=== PATIENT | male | born 1960 | race Caucasian/White ===

== ENCOUNTER → 2021-05-27 | Outpatient (CLI) | payer SELFPAY | LOC: COL.VAS 13:01 | DX: I34.0 Nonrheumatic mitral (valve) insufficiency (principal); I51.7 Cardiomegaly ==

== ENCOUNTER 2022-03-04 12:52 | Inpatient (IN) | payer SELFPAY ==
[~2022-03-04] VITALS: Ht 193 cm; Wt 95.5 kg
[2022-03-04 14:14] LABS: BASO # 0.1 K/mm3 (0.0-0.2); BASO % 1.1 % (0.0-2.0); EOS # 0.3 K/mm3 (0.0-0.7); EOS % 2.7 % (0.0-4.0); GRAN # 5.7 K/mm3 (1.4-6.5); GRAN % 60.5 % (42.2-75.2); HEMATOCRIT 45.4 % (42.0-52.0); HEMOGLOBIN 15.8 g/dl (13.5-18.0); LYMPH # 2.5 K/mm3 (1.2-3.4); MEAN CELL VOLUME 90 fl (80.0-100.0); MEAN CORPUSCULAR HEMOGLOBIN 31 pg (27-31); MEAN CORPUSCULAR HGB CONC 35 g/dl (33.0-37.0); MEAN PLATELET VOLUME 11.9 fl (7.4-10.4); MONO # 0.9 K/mm3 (0.1-0.6); MONO % 9.3 % (1.7-9.3); PLATELET COUNT 222 K/mm3 (130-400); RED BLOOD COUNT 5.07 M/mm3 (4.20-5.60); REDCELL DISTRIBUTION WIDTH-CV 13.4 % (11.5-14.5)
[2022-03-04 14:29] LABS: INR 1.2 (0.8-3.0); PROTHROMBIN TIME 13.9 SECONDS (9.7-12.8)
[2022-03-04 14:36] LABS: ALANINE AMINOTRANSFERASE 12 U/L (0-55); ALBUMIN 3.7 gm/dL (3.4-4.8); ALKALINE PHOSPHATASE 63 U/L (40-150); ANION GAP 8 mmol/L (7-16); AST,SGOT 15 U/L (5-34); BILIRUBIN,TOTAL 2.2 mg/dL (0.2-1.2); BLOOD UREA NITROGEN 19 mg/dL (8-26); CALCIUM 8.9 mg/dL (8.4-10.2); CARBON DIOXIDE 22 mmol/L (23-31); CHLORIDE 108 mmol/L (98-107); CREATININE, serum 1.05 mg/dL (0.72-1.25); GLUCOSE 97 mg/dL (70-99); POTASSIUM 4.4 mmol/L (3.5-4.5); SODIUM 138 mmol/L (136-145); TOTAL PROTEIN 7.1 gm/dL (6.2-8.1)
[2022-03-04 14:48] LABS: TROPONIN-I < 0.010 ng/mL (0.00-0.033)
[2022-03-04] MEDS ORDERED: LOPRESSOR 225 MG/TAB PO (15:45)
[2022-03-04] MEDS ORDERED: ELIQUIS 5MG PO (15:45)
[2022-03-04 16:00] VITALS: BP 127/87; BP 138/78; PULSE 128; PULSE 131; TEMP 98
--- NOTE | 2022-03-04 16:16 | NUR ---
BEDSIDE AND NOTIFIED OF HR IN THE 140'S. WILL PLACE ORDERS
--- NOTE | 2022-03-04 20:00 | NUR ---
PT IN CHAIR AT BEDSIDE. IS ALERT AND ORIENTED X4. HAS INT TO LFA, FLUSHES WELL. PT AWARE HE WILL BE NPO AT MIDNIGHT. HR REMAINS IRREGULAR, AFIB/FLUTTER ON MONITOR. DENIES PAIN AT THIS TIME.
[2022-03-04 20:28] VITALS: BP 126/76; PULSE 67; TEMP 98.2
[2022-03-04 23:53] VITALS: BP 126/73; PULSE 62; TEMP 98.3
[2022-03-05] VITALS (22 sets, daily range): BP systolic 89–129; BP diastolic 55–99; PULSE 58–123; TEMP 97.6–98.2
[2022-03-05 06:42] LABS: BASO # 0.1 K/mm3 (0.0-0.2); BASO % 0.8 % (0.0-2.0); EOS # 0.3 K/mm3 (0.0-0.7); EOS % 2.8 % (0.0-4.0); GRAN # 5.5 K/mm3 (1.4-6.5); GRAN % 62.1 % (42.2-75.2); HEMATOCRIT 46.7 % (42.0-52.0); HEMOGLOBIN 15.9 g/dl (13.5-18.0); LYMPH # 2.2 K/mm3 (1.2-3.4); LYMPH % 24.9 % (20.0-51.0); MEAN CELL VOLUME 92 fl (80.0-100.0); MEAN CORPUSCULAR HEMOGLOBIN 31 pg (27-31); MEAN CORPUSCULAR HGB CONC 34 g/dl (33.0-37.0); MEAN PLATELET VOLUME 12.2 fl (7.4-10.4); MONO # 0.8 K/mm3 (0.1-0.6); MONO % 9.1 % (1.7-9.3); PLATELET COUNT 194 K/mm3 (130-400); REDCELL DISTRIBUTION WIDTH-CV 13.3 % (11.5-14.5)
[2022-03-05 06:53] LABS: ALBUMIN 3.4 gm/dL (3.4-4.8); CALCIUM 9.1 mg/dL (8.4-10.2); CHOLESTEROL RISK RATIO 4.4; CREATININE, serum 1.13 mg/dL (0.72-1.25); MAGNESIUM 1.9 mg/dL (1.6-2.6); POTASSIUM 4.2 mmol/L (3.5-4.5)
--- NOTE | 2022-03-05 10:01 | NUR ---
PT LEFT FOR [facility] COMPLETED PROCEEDURE AND RETURNED TO FLOOR. PT TO HAVE FURTHER CARDIAC WORKUP LATER TODAY.
--- NOTE | 2022-03-05 11:39 | NUR ---
Sterile Technician met with patient to discuss discharge planning. Patient lives in [place] with his , Josephine (ph#[phone]) and sees Dr. Adia Cruz for primary care, who is also his daughter. Patient gets his medications from [facility] and does not use any DME. Patient is part of a cost sharing program as insurance, so he is listed as self pay. Patient is independent with ADLS and plans to return home at time of discharge. Discharge Plan: Home
--- NOTE | 2022-03-05 15:34 | NUR ---
SEE MERGE DOCUMENTATION FOR MEDICATION ADMINISTRATION AND INTRA/POST PROCEDURE SEDATION ASSESSMENTS.
--- NOTE | 2022-03-05 17:30 | NUR ---
PT TO ROOM 344 POST PROCEEDURE. PT HAD GENA CARDIVERSION, AND LEFT SIDED HEAR CATH. PT TOLERATED WELL. PT HAS AMNIO DRIP @1 MG /MIN PER PUMP. VSS, REPORT FROM AMBULANCE OPERATIONS SUPERVISOR STAFF. TR BAND INPLACE WITH 14 MLS AIR IN BAND.
--- NOTE | 2022-03-05 18:07 | NUR ---
PAGED JOSUE DICKERSON FOR CARDS.
--- NOTE | 2022-03-05 18:15 | NUR ---
PT TO BE ON STRICT BEDREST OVER NIGHT PER DR. DIEHL.
--- NOTE | 2022-03-05 19:15 | NUR ---
PT IN BED. REMOVED 2CC AIR FROM TR BAND, NO BLEEDING NOTED. REMAINS ON BEDREST. HAS IVF AND AMIODARONE GTT TO LEFT FOREARM INFUSING WITHOUT PROBLEM. PT VOIDING PER URINAL.
--- NOTE | 2022-03-05 19:45 | NUR ---
ATTEMPTED TO RELEASE MORE AIR FROM TR BAND, HAD OOZING AT SITE, AIR PUT BACK IN BAND.
--- NOTE | 2022-03-05 21:00 | NUR ---
REMOVED 3CC AIR FROM TR BAND, NO BLEEDING AT SITE. SBP REMAIN UNDER 100.
--- NOTE | 2022-03-05 22:00 | NUR ---
REMOVED 3CC AIR FROM TR BAND. NO BLEEDING AT SITE. IVF INFUSING WITH AMIODARONE GTT. PT DENIES PAIN.
--- NOTE | 2022-03-05 22:30 | NUR ---
3CC AIR REMOVED FROM RT TR BAND. SITE WITHOUT OOZING.
--- NOTE | 2022-03-05 23:30 | NUR ---
REMOVED LAST OF AIR FROM TR BAND. PT RESTING BETWEEN DISTURBANCES. USES URINAL WITHOUT PROBLEM.
--- NOTE | 2022-03-05 23:35 | NUR ---
SPOKE WITH ZULY MICHELLE REGARDING SBP<100, OKAYS TO HOLD METOPROLOL TONIGHT.
[2022-03-06 00:30] VITALS: BP 102/65; PULSE 70; TEMP 97.6
--- NOTE | 2022-03-06 00:30 | NUR ---
REMOVED TR BAND FROM RT WRIST AFTER AIR HAD BEEN DEFLATED FOR OVER AN HOUR. PLACED BANDAID ON SITE.
[2022-03-06 03:47] VITALS: BP 104/53; PULSE 60; TEMP 98.7
[2022-03-06 04:17] VITALS: BP 104/53; PULSE 60; TEMP 98.7
[2022-03-06 05:59] LABS: BASO # 0.1 K/mm3 (0.0-0.2); BASO % 0.8 % (0.0-2.0); EOS # 0.3 K/mm3 (0.0-0.7); EOS % 2.6 % (0.0-4.0); GRAN # 6.8 K/mm3 (1.4-6.5); GRAN % 67.3 % (42.2-75.2); HEMATOCRIT 44.1 % (42.0-52.0); HEMOGLOBIN 14.6 g/dl (13.5-18.0); LYMPH % 19.8 % (20.0-51.0); MEAN CELL VOLUME 93 fl (80.0-100.0); MEAN CORPUSCULAR HEMOGLOBIN 31 pg (27-31); MEAN CORPUSCULAR HGB CONC 33 g/dl (33.0-37.0); MEAN PLATELET VOLUME 12.4 fl (7.4-10.4); MONO # 0.9 K/mm3 (0.1-0.6); MONO % 9.2 % (1.7-9.3); PLATELET COUNT 195 K/mm3 (130-400); RED BLOOD COUNT 4.72 M/mm3 (4.20-5.60); REDCELL DISTRIBUTION WIDTH-CV 13.6 % (11.5-14.5)
--- NOTE | 2022-03-06 06:00 | NUR ---
PT REMAINS BEDREST. USING URINAL ALL NIGHT. AMIODARONE GTT CONTINUES.
[2022-03-06 06:18] LABS: ALBUMIN 3.3 gm/dL (3.4-4.8); CALCIUM 8.7 mg/dL (8.4-10.2); CREATININE, serum 1.1 mg/dL (0.72-1.25); MAGNESIUM 1.9 mg/dL (1.6-2.6); PHOSPHOROUS 4.3 mg/dL (2.3-4.7); POTASSIUM 3.9 mmol/L (3.5-4.5)
[2022-03-06 08:00] VITALS: BP 110/61; PULSE 60; TEMP 97.6
[2022-03-06] MEDS ORDERED: MULTAQ400 MG PO (10:06)
--- NOTE | 2022-03-06 11:33 | NUR ---
PT DISCHARGED TO HOME WITH SPOUSE @ THIS TIME, AMBULATES TO PRIVATE VEHICLE WITH ADRIENNE FOUNTAIN. PT HAS SHOWERED INDEPENDENTLY, AMBULATED WITH EASE IN HALLWAY, DENIES PAIN OR SOB. PT GIVEN DC INSTRUCTIONS ET EDUCATION, DENIES QUESTIONS.
== END 2022-03-06 11:33 | disposition home or self-care (01) | DRG 287 ==
LOC: COL.ER 12:52 → SURG 14:17
PROVIDERS: Nurse Practitioner Primary Care; ADMIT Internal Medicine
PROC: B211YZZ Fluoroscopy of Multiple Coronary Arteries using Other Contrast (ICD-10-PCS; principal; 2022-03-05)
PROC: 5A2204Z Restoration of Cardiac Rhythm, Single (ICD-10-PCS; 2022-03-05)
PROC: 4A023N7 Measurement of Cardiac Sampling and Pressure, Left Heart, Percutaneous Approach (ICD-10-PCS; 2022-03-05)
DX: I48.0 Paroxysmal atrial fibrillation (principal); I34.0 Nonrheumatic mitral (valve) insufficiency; I49.9 Cardiac arrhythmia, unspecified; I48.92 Unspecified atrial flutter; I25.10 Atherosclerotic heart disease of native coronary artery without angina pectoris; I25.9 Chronic ischemic heart disease, unspecified; Z79.82 Long term (current) use of aspirin; Z79.01 Long term (current) use of anticoagulants; Z98.52 Vasectomy status
CPT/HCPCS: OP; 99233-AI; A9500; C1769; G0378; J0282; J1644; J2250; J2704; J2785; J3010; J7050; Q9967

== ENCOUNTER → 2023-10-19 | Outpatient (CLI) | payer MEDICARE, OTHER ==
[~2023-10-19] MED LIST: BETAPACE 120MG120 MG PO; CLARITIN 1010 MG/TAB PO; ELIQUIS 5MG PO; FLONASEALLERGY NS; Iohexol 300 - 100 ML VIAL IV ONE; LOPRESSOR 225 MG/TAB PO; LOPRESSOR 550 MG/TAB PO; MULTAQ400 MG PO; NS 100 ML IV SCH; TYLENOL 325MG325 MG PO
== END ==
LOC: COL.RAD 10:35
DX: C49.A0 Gastrointestinal stromal tumor, unspecified site (principal); K31.89 Other diseases of stomach and duodenum
CPT/HCPCS: Q9967

== ENCOUNTER 2023-12-19 12:01 | Outpatient (RCR) | payer MEDICARE, OTHER ==
[~2023-12-19 12:01] MED LIST changes: -Iohexol 300 - 100 ML VIAL IV ONE; -NS 100 ML IV SCH
== END 2023-12-20 | disposition home or self-care (01) ==
LOC: COL.CR
DX: Z48.812 Encounter for surgical aftercare following surgery on the circulatory system (principal); Z98.890 Other specified postprocedural states

== ENCOUNTER 2024-03-07 12:21 | Day surgery (SDC) | payer MEDICARE, OTHER ==
[~2024-03-07] VITALS: Ht 193 cm; Wt 95.0 kg
[2024-03-07] MEDS ORDERED: BETAPACE160 MG PO (13:22)
[2024-03-07 13:24] VITALS: BP 123/86; PULSE 64; TEMP 97.3
--- NOTE | 2024-03-07 13:26 | NUR ---
Written med list was reviewed with Dr De La Vega, he finalizes pt home meds prior to entry being updated
--- NOTE | 2024-03-07 13:28 | NUR ---
Tylenol last taken 03/06/24 at 1400 1 tab, unknown mg dosage Aspirin 81 mg last taken 03/06/24 at 0800 Has been taking sotolol 120mg BID, last taken 03/07/24 at 0800 Flomax 0.4 mg daily, taken 03/07/24 at 0800
--- NOTE | 2024-03-07 13:40 | NUR ---
DC meds and follow up appt reviewed with pt, he expresses understanding. Procedure was cancelled due to sinus rhythm. Pt has called for ride home. He is escorted out to elevator to meet her, gait steady.
== END 2024-03-07 13:40 | disposition home or self-care (01) ==
LOC: COL.CAR 12:21
DX: I48.92 Unspecified atrial flutter (principal); Z53.8 Procedure and treatment not carried out for other reasons